=== PATIENT | female | born 1980 | race Hispanic/Latino ===

== ENCOUNTER 2021-06-20 20:56 | Inpatient (IN) | payer OTHER, MEDICAID ==
[~2021-06-20] VITALS: Ht 152.4 cm; Wt 78.9 kg
[2021-06-20] MEDS ORDERED: DINOPROSTONE 10 MG VAGINAL SUPP EC SCH (21:30)
[2021-06-20] MEDS ORDERED: OXYTOCIN-LR 20 UNITS/1000 ML 1,000 ML IV SCH ×2 (21:30)
[2021-06-20] MEDS ORDERED: LACTATED RINGERS 1000ML 1,000 ML IV PRN (21:30)
[2021-06-20 21:39] LABS: APPEARANCE,URINE Clear (CLEAR); BILIRUBIN,URINE Negative (NEGATIVE); COLOR,URINE Yellow (YELLOW); GLUCOSE, URINE (UA) Negative (NEGATIVE); KETONES,URINE Negative (NEGATIVE); LEUKOCYTE ESTERASE ,URINE Negative (NEGATIVE); NITRATE,URINE Negative (NEGATIVE); OCCULT BLOOD,URINE Negative (NEGATIVE); PROTEIN,URINE Negative (NEGATIVE); UROBILINOGEN,URINE 0.2 mg/dL (0.2-1.0)
[2021-06-20 22:00] LABS: HEMATOCRIT 33.3 % (36-48); MEAN CORPUSCULAR HEMOGLOBIN 27.6 pg (27.0-33.0); MEAN CORPUSCULAR VOLUME 83.7 fL (79-99); RED BLOOD CELL COUNT(AUTO) 3.98 MIL/uL (4.00-5.50); RED CELL DISTRIBUTION WIDTH 13.3 % (11.0-15.5); WHITE BLOOD COUNT (AUTO) 7.2 K/uL (4.8-10.8)
[2021-06-21] MEDS ORDERED: BUTORPHANOL TARTRATE 2 MG/ML IVP ONE ×2 (01:30→04:30)
[2021-06-21] MEDS ORDERED: BUTORPHANOL TARTRATE 2 MG/ML ONE (04:11)
[2021-06-21] MEDS ORDERED: ROPIVACAINE 0.2% 100ML VIAL 100 ML EP SCH (05:30)
[2021-06-21] MEDS ORDERED: EPHEDRINE SULFATE 50 MG/ML AMPULE IVP PRN (05:30)
[2021-06-21] MEDS ORDERED: LACTATED RINGERS 500 ML 500 ML IV PRN (05:30)
[2021-06-21] MEDS ORDERED: NALOXONE HCL 0.4 MG/1 ML ML IV PRN (05:30)
[2021-06-21] MEDS ORDERED: ACETAMINOPHEN 325 MG TAB ONE (08:14)
[2021-06-21] MEDS ORDERED: ACETAMINOPHEN 325 MG TAB PO SCH (08:30)
[2021-06-21 09:49] LABS: RAPID PLASMA REAGIN NONREACTIVE (NONREACTIVE)
[2021-06-21] MEDS ORDERED: WITCH HAZEL 1 PAD TP PRN (10:30)
[2021-06-21] MEDS ORDERED: IBUPROFEN 600 MG TABLET PO PRN (10:30)
[2021-06-21] MEDS ORDERED: OXYTOCIN-LR 20 UNITS/1000 ML 1,000 ML IV SCH (10:30)
[2021-06-21] MEDS ORDERED: MEASLES/MUMPS/RUBELLA VACCINE, LIVE 0.5 ML/VIAL SQ PRN (10:30)
[2021-06-21] MEDS ORDERED: LANOLIN 30GM OINTMENT TP PRN (10:30)
[2021-06-21] MEDS ORDERED: BENZOCAINE/LANOLIN/ALOE VERA 60 ML AEROSOL TP PRN (10:30)
[2021-06-21] MEDS ORDERED: ACETAMINOPHEN WITH CODEINE 1 TAB TAB PO PRN (10:30)
[2021-06-21] MEDS ORDERED: DIPH,PERTUSS(ACELL),TET VAC/PF 0.5 ML VIAL IM PRN (10:30)
[2021-06-21 13:18] VITALS: BP 109/70
[2021-06-21 16:21] VITALS: BP 114/80
[2021-06-21] MEDS: ACETAMINOPHEN 325 MG TAB PO PRN ×2 (17:49→22:21)
[2021-06-21 19:42] VITALS: BP 100/68
[2021-06-21] MEDS: DOCUSATE SODIUM 100 MG CAP PO SCH (21:12)
[2021-06-21 22:59] VITALS: BP 103/57
[2021-06-22 03:56] VITALS: BP 101/60
[2021-06-22] MEDS: ACETAMINOPHEN 325 MG TAB PO PRN (06:29)
[2021-06-22 06:43] LABS: MEAN CORPUSCULAR HEMOGLOBIN 27.5 pg (27.0-33.0); RED BLOOD CELL COUNT(AUTO) 3.49 MIL/uL (4.00-5.50); RED CELL DISTRIBUTION WIDTH 13.7 % (11.0-15.5); WHITE BLOOD COUNT (AUTO) 9.7 K/uL (4.8-10.8)
[2021-06-22 07:45] VITALS: BP 107/70
[2021-06-22] MEDS: DOCUSATE SODIUM 100 MG CAP PO SCH (09:01)
== END 2021-06-22 14:40 | disposition home or self-care (01) | DRG 807 ==
LOC: LDH 20:56 → WSH 06-21 13:15
PROVIDERS: ADMIT Obstetrics & Gynecology; ATTEND Obstetrics & Gynecology
PROC: 10E0XZZ Delivery of Products of Conception, External Approach (ICD-10-PCS; principal; 2021-06-21)
PROC: 3E0R3BZ Introduction of Anesthetic Agent into Spinal Canal, Percutaneous Approach (ICD-10-PCS; 2021-06-21)
PROC: 00HU33Z Insertion of Infusion Device into Spinal Canal, Percutaneous Approach (ICD-10-PCS; 2021-06-21)
DX: O75.89 Other specified complications of labor and delivery (principal); Z37.0 Single live birth; Z3A.39 39 weeks gestation of pregnancy
CPT/HCPCS: 36415; 81003; 85027; 86592; 86701; 86850; 86900; 86901; 87340; 87390; A4314; G0378; J0595; J2590; J2795; J7120